=== PATIENT | male | born 1955 | race Caucasian/White ===

== ENCOUNTER 2022-03-17 09:19 | Outpatient (CLI) | payer MEDICARE, OTHER, SELFPAY ==
--- NOTE | 2022-03-17 09:30 | ECG_ITS ---
Measurements Intervals [place] Rate: 58 P: 8 MS: 176 QRS: 11 QRSD: 86 T: 45 QT: 405 QTc: 400 Interpretive Statements SINUS BRADYCARDIA WITH SINUS ARRHYTHMIA NONSPECIFIC ST & T-WAVE ABNORMALITY ABNORMAL ECG NO PREVIOUS ECG AVAILABLE FOR COMPARISON Electronically Signed On 03-17-2022 12:07:45 CDT by Judd Castillo M.D.
[2022-03-17 10:23] LABS: Anion Gap 10 mmol/L (8-16); Blood Urea Nitrogen 13 mg/dL (9-20); Calcium 8.9 mg/dL (8.4-10.2); Carbon Dioxide 21 mmol/L (22-30); Chloride 106 mmol/L (98-107); Estimated Glomerular Filt Rate > 60; Glucose 166 mg/dL (65-110); Potassium 4.5 mmol/L (3.4-5.0); Sodium 137 mmol/L (137-145)
== END 2022-03-17 09:20 | disposition home or self-care (01) ==
LOC: ANHSURGERY 09:35
PROVIDERS: Anesthesiology; Visit Provider Otolaryngology
DX: E11.9 Type 2 diabetes mellitus without complications (principal); Z01.818 Encounter for other preprocedural examination
CPT/HCPCS: 36415; 80048; 93005

== ENCOUNTER 2022-03-20 01:04 | Day surgery (SDC) | payer MEDICARE, OTHER, SELFPAY ==
[2022-03-16 11:03] VITALS: BMI 27.1
--- NOTE | 2022-03-16 11:28 | PC.NURSE ---
Report to the Outpatient Waiting Room, entrance under the green pavilion located off [facility], at time on date . OR Time: . - You and your visitor will be asked to self-screen and do not enter if you have any COVID symptoms. - Only one visitor and NO children visitors are allowed at this time. - The patient visitor is requested to leave or wait in car when not with patient due to restrictions. - A mask is required within the hospital. Patients may have clear liquids (water, carbonated beverages, clear teas, apple juice) until 3 hours prior to surgery with a maximum of 20 ounces. - No food from midnight until time of surgery - Infants may have breast milk until 4 hours before surgery, formula 6 hours prior to surgery. - Children will be allowed to drink immediately following surgery. If applicable, please bring a bottle or sippy cup to assist with drinking. Juice, water, soda, and popsicles are readily available. For infants on formula, please bring formula the day of surgery. Pacifiers are allowed. Take the following medications with a SIP of water the morning of surgery: _METOPROLOL, TOPIRAMATE_ Medications to discontinue per physician _ASPIRIN PER DR. BECKER'S INSTRUCTIONS__ Date to take last dose Please no make-up, nail divehi, hairspray, perfume, deodorant, or body powder the day of surgery. No jewelry (including any body piercings) or valuables the day of surgery, leave them at home. Please take a shower or bath the night before, or the morning of, surgery with an antibacterial soap. Wear comfortable, loose fitting clothing. - Jewelry must be removed prior to entering the operating room. Rings and piercings that are not removed may be cut off. - The hospital will not accept responsibility for valuables. - Please leave all valuables, including medications, at home the day of surgery. If you are going home after surgery, a licensed commercial trailer truck driver must drive you home. - NO public transportation without another adult. - We recommend that an adult stay with you for 24 hours following discharge. - We also recommend that you do not drive, make important decision, drink alcoholic beverages, or take any drugs that were not prescribed by your health care provider for at least 24 hours after your discharge time. Follow any additional instructions given to you from your surgeon. If you or anyone in your household have experienced Covid symptoms in the past week, please notify your surgeon or the nurse liaison at the phone number below for possible testing. Telephone instructions given to ___PT and asked if any additional questions and then verbalized understanding. Patient advised to call surgeon office or pre surgery nurse liaison [phone] if any additional questions.
--- NOTE | 2022-03-16 11:30 | PC.NURSE ---
PRE-OP INSTRUCTIONS, PLEASE READ CAREFULLY Report to the Outpatient Waiting Room, entrance under the green pavilion located off [facility], at time _1100_ on date _03/20/22_. OR Time: _1 PM_. - You and your visitor will be asked to self-screen and do not enter if you have any COVID symptoms. - Only one visitor and NO children visitors are allowed at this time. - The patient visitor is requested to leave or wait in car when not with patient due to restrictions. - A mask is required within the hospital. Patients may have clear liquids (water, carbonated beverages, clear teas, apple juice) until 3 hours prior to surgery (1000 AM) with a maximum of 20 ounces. - No food from midnight until time of surgery Take the following medications with a SIP of water the morning of surgery: _METOPROLOL, TOPIRAMATE_ Medications to discontinue per physician _ASPIRIN PER DR. BUCKLEY'S INSTRUCTIONS____ Medications to discontinue per ANESTHESIA - _VIT E AND KRILL OIL 3 DAYS PRIOR TO SURGERY, Date to take last dose 03/16/22_ Please no make-up, nail beninese, hairspray, perfume, deodorant, or body powder the day of surgery. No jewelry (including any body piercings) or valuables the day of surgery, leave them at home. Please take a shower or bath the night before, or the morning of, surgery with an antibacterial soap. Wear comfortable, loose fitting clothing. Children are encouraged to wear pajamas. - Jewelry must be removed prior to entering the operating room. Rings and piercings that are not removed may be cut off. - The hospital will not accept responsibility for valuables. - Please leave all valuables, including medications, at home the day of surgery. If you are going home after surgery, a licensed sales route driver helper must drive you home. - NO public transportation without another adult. - We recommend that an adult stay with you for 24 hours following discharge. - We also recommend that you do not drive, make important decision, drink alcoholic beverages, or take any drugs that were not prescribed by your health care provider for at least 24 hours after your discharge time. Follow any additional instructions given to you from your surgeon. If you or anyone in your household have experienced Covid symptoms in the past week, please notify your surgeon or the nurse liaison at the phone number below for possible testing. Telephone instructions given to ____PT and asked if any additional questions and then verbalized understanding. Patient advised to call surgeon office or pre surgery nurse liaison [phone] if any additional questions.
--- NOTE | 2022-03-18 16:15 | PM.IMHP ---
H&P: HPI History of Present Illness Date/Time: 03/18/22 16:15 Chief Complaint: Nasopharyngeal mass Narrative: planned surgical procedure Review of Systems Review of Systems: All systems reviewed & are unremarkable except as noted in HPI and below PMFSH Family History Family History Father Diabetes mellitus Hypertension Heart disease Social History Social History Smoking status: Never smoker Second hand tobacco smoke exposure: No Alcohol intake: current Alcohol use details: STATES MAYBE 30 BEERS IN A YEARS TIME Substance use: never Substance use type: does not use Spiritual care concerns: No Meds Home Medications and Allergies Home Medications Medication Instructions Recorded Confirmed Type aspirin 81 mg tablet,delayed 81 mg PO DAILY 02/24/22 03/16/22 History release (Adult Aspirin Regimen) atorvastatin 40 mg tablet 40 mg PO DAILY 02/24/22 03/16/22 History fenofibrate 160 mg tablet 160 mg PO DAILY 02/24/22 03/16/22 History glimepiride 4 mg tablet 4 mg PO QAM 02/24/22 03/16/22 History krill oil 350 mg-om-3 90 mg-dha 24 1 cap PO QAM 02/24/22 03/16/22 History mg-epa 50 mg-phospholipids capsule metformin 1,000 mg tablet 1,000 mg PO BID 02/24/22 03/16/22 History metoprolol succinate 50 mg 50 mg PO BID 02/24/22 03/16/22 History tablet,extended release 24 hr topiramate 25 mg tablet 25 mg PO BID 02/24/22 03/16/22 History vitamin E (dl, acetate) 180 mg 180 mg PO DAILY 02/24/22 03/16/22 History (400 unit) capsule Allergies Allergy/AdvReac Type Severity Reaction Status Date / Time penicillin G Allergy Intermediate raw and Verified 03/16/22 10:58 burning sensation Exam Narrative: normal ENT exam Assessment and Plan Assessment and plan (1) 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 Risks discussed including bleeding infection need for further procedures need for further treatment should this be something sinister of LF pharyngeal insufficiency CSF leak brain brain damage blindness change in vision patient voiced understanding and agreed. (2) Nasal crusting: Code(s): J34.89 - Other specified disorders of nose and nasal sinuses Status: Acute
--- NOTE | 2022-03-19 13:56 | WPDANESEPPF ---
Anes - Initial Pre Proc Eval Procedure: Operation Date: 03/20/22 13:00 Proposed Procedures p Nasal Endoscopic Nasopharyngeal Mass Biopsy - Christophe Barrera MD <Rodrigo Astorga, DO - Last Filed: 03/25/22 07:25> Date/Time: 03/19/22 13:56 <Rodrigo Astorga DO - Last Filed: 03/25/22 07:25> Surgeon: Christophe Barrera MD <Rodrigo Astorga DO - Last Filed: 03/25/22 07:25> Pre Op Diagnosis: Nasal Pharyngeal Mass <Rodrigo Astorga DO - Last Filed: 03/25/22 07:25> Patient Data Age: 66 Gender: M Height: 1.83 m Weight: 90.9 kg <Rodrigo Astorga DO - Last Filed: 03/25/22 07:25> Allergies Allergy/AdvReac Type Severity Reaction Status Date / Time penicillin G Allergy Intermediate raw and Verified 03/20/22 11:33 burning sensation <Rodrigo Astorga DO - Last Filed: 03/25/22 07:25> Home Medications Medication Instructions Recorded Confirmed Type aspirin 81 mg tablet,delayed 81 mg PO DAILY 02/24/22 03/20/22 History release (Adult Aspirin Regimen) atorvastatin 40 mg tablet 40 mg PO DAILY 02/24/22 03/20/22 History fenofibrate 160 mg tablet 160 mg PO DAILY 02/24/22 03/20/22 History glimepiride 4 mg tablet 4 mg PO QAM 02/24/22 03/20/22 History krill oil 350 mg-om-3 90 mg-dha 24 1 cap PO QAM 02/24/22 03/20/22 History mg-epa 50 mg-phospholipids capsule metformin 1,000 mg tablet 1,000 mg PO BID 02/24/22 03/20/22 History metoprolol succinate 50 mg 50 mg PO BID 02/24/22 03/20/22 History tablet,extended release 24 hr topiramate 25 mg tablet 25 mg PO BID 02/24/22 03/20/22 History vitamin E (dl, acetate) 180 mg 180 mg PO DAILY 02/24/22 03/20/22 History (400 unit) capsule oxycodone 5 mg tablet 5 mg PO Q12H PRN pain #10 tabs 03/20/22 Rx <Rodrigo Astorga DO - Last Filed: 03/25/22 07:25> Patient hx anesthesia problems: none <Elvis Jimenez MD - Last Filed: 03/20/22 12:05> Family hx anesthesia problems: none <Elvis Jimenez MD - Last Filed: 03/20/22 12:05> Results Review: All pre-operative results and documents have been reviewed as part of the pre-operative evaluation. <Rodrigo Astorga DO - Last Filed: 03/25/22 07:25> [facility] Past Medical History Medical History: Medical History (Updated 03/20/22 @ 13:47 by Christophe Barrera MD) Aortic stenosis Diabetes HTN (hypertension) Hyperlipidemia <Rodrigo Astorga DO - Last Filed: 03/25/22 07:25> Surgical History Surgical History: Surgical History History of aortic valve replacement with porcine valve History of laparoscopic cholecystectomy <Rodrigo Astorga DO - Last Filed: 03/25/22 07:25> Family History Family History: Family History Father Diabetes mellitus Hypertension Heart disease <Rodrigo Astorga DO - Last Filed: 03/25/22 07:25> Social History Social History: Social History Smoking status: Never smoker Second hand tobacco smoke exposure: No Alcohol intake: current Alcohol use details: STATES MAYBE 30 BEERS IN A YEARS TIME Substance use: never Substance use type: does not use Gender identity (if verbalized by the patient): Male Sexual Orientation (if Verbalized by the Patient): Straight or Heterosexual Spiritual care concerns: No <Rodrigo Astorga DO - Last Filed: 03/25/22 07:25> Anes - Eval Final PreProcedure Day of Procedure 03/19/22 13:56 <Rodrigo Astorga DO - Last Filed: 03/25/22 07:25> Patient weight: overweight <Rodrigo Astorga DO - Last Filed: 03/25/22 07:25> Heart: regular rate and rhythm <Rodrigo Astorga DO - Last Filed: 03/25/22 07:25> Lungs: clear to auscultation <Rodrigo Astorga DO - Last Filed: 03/25/22 07:25> Airway: Mallampati scale class II
[2022-03-20] VITALS (9 sets, daily range): BP systolic 135–160; BP diastolic 60–86; PULSE 53–79; RESP 15–22; TEMP 36–36.1; O2SAT 94–100
--- NOTE | 2022-03-20 07:10 | WPDHPUPDATE1 ---
History and Physical Update Update Date/Time: 03/20/22 07:10 History and Physical has been reviewed, including an updated exam of the patient. There are NO changes in the patient's condition. Risks, benefits, and alternatives have been discussed and questions answered. Patient agrees to proceed with procedure.
[2022-03-20] MEDS: ACETAMINOPHEN 500 MG TABLET 1000 MG PO (12:02)
[2022-03-20] MEDS: LACTATED RINGERS 1,000 ML 30 ML IV CONT ×2 (12:02→13:48)
[2022-03-20 12:08] LABS: Glucose Point of Care 103 mg/dl (65-105)
[2022-03-20] MEDS: ceFAZolin 2 GM/D5W 50 ML 2 GM/50 ML BAG IVPB (12:56)
[2022-03-20] MEDS: OXYMETAZOLINE HCL 0.05% NAS 15 ML BTL (*BKC) 1 SPRAY NASAL (13:12)
[2022-03-20 13:42] LABS: Glucose Point of Care 97 mg/dl (65-105)
--- NOTE | 2022-03-20 13:49 | W.PM.PROC2 ---
Procedure Note - Detailed Date of Procedure 03/20/22 Pre-op Diagnosis Nasal Pharyngeal Mass Post-op Diagnosis Same Procedure Performed Nasal endoscopy biopsy of nasopharyngeal mass Surgeon Christophe Barrera MD Anesthesia General Indications See above Findings Mild ulcerative area biopsy with very very thorough examination and close examination less sinister appearing more chronic infected appearance Description of Procedure Patient identified consent verified. Patient brought operating. Time-out performed. General anesthesia induced. Endotracheal tube secured airway taped left lower lip. Bed position patient prepped and draped Afrin-soaked pledgets placed allowed to sit for 5 minutes then removed 2nd time-out performed. 0 degree endoscope utilized. Nasopharyngeal crusting debrided small ulcerative air beneath left sinister appearing than it did in clinic. Biopsy taken. Bovie suction electrocautery at a setting of 12 utilized on 2 spots that were biopsied Afrin-soaked pledgets placed against the biopsy site. There allowed to sit for 5 minutes then removed. No further bleeding was noted. No complications. Care the patient given Anesthesiology total blood loss less than 5 cc. I performed all dictated portions. There were no complications. Estimated Blood Loss -5.0 Drains No Packing No Pathology Yes Complications No immediate complications Condition Stable Disposition PACU
[2022-03-20 14:11] LABS: Glucose Point of Care 97 mg/dl (65-105)
[2022-03-20] MEDS: ONDANSETRON INJ 4 MG/2 ML VIAL IV PUSH (14:40)
== END 2022-03-20 15:50 | disposition home or self-care (01) ==
PROVIDERS: Visit Provider Otolaryngology
PROC: (CPT 42999; principal; 2022-03-20 13:00)
DX: J34.89 Other specified disorders of nose and nasal sinuses (principal); I10 Essential (primary) hypertension; E11.9 Type 2 diabetes mellitus without complications; E78.5 Hyperlipidemia, unspecified; Z79.84 Long term (current) use of oral hypoglycemic drugs; Z79.82 Long term (current) use of aspirin; Z95.3 Presence of xenogenic heart valve
CPT/HCPCS: 42999; 82948; 88304; 88342; A9270; J0330; J0690; J1100; J1170; J2250; J2405; J2704; J3010; J7120

== ENCOUNTER 2023-06-11 11:00 | Outpatient (RCR) | payer MEDICARE, OTHER, SELFPAY | END 2023-06-11 13:00 | disposition home or self-care (01) | PROVIDERS: Visit Provider Surgery | DX: Z95.1 Presence of aortocoronary bypass graft (principal); Z95.5 Presence of coronary angioplasty implant and graft | CPT/HCPCS: 93798 ==

== ENCOUNTER 2024-02-01 13:54 | Outpatient (CLI) | payer MEDICARE, OTHER, SELFPAY ==
--- NOTE | ~2024-02-01 | NM_ITS ---
EXAMINATION: NM thyroid scan w uptake DATE: 02/02/2024 14:41 INDICATION: Other specified abnormal findings of blood chemistry COMPARISON: None. TECHNIQUE: 346 microcuries [id number] was administered orally in capsule form. Scintigraphic images of t he thyroid gland were obtained at 24 hours. Thyroid uptake was calculated by the technologist. FINDINGS: The thyroid uptake is 5.9% (normal 10-30%), with the right lobe measuring 3.4% uptake and the left 2. 6%. There is no focal area of decreased or increased activity to suggest hypofunctioning or hyperfunc tioning nodule. IMPRESSION: 1. Normal thyroid scintigraphy with diffusely decreased 24-hour iodine uptake with differential suba cute thyroiditis, Jennifer's thyroiditis, iodine overload or factitious hyperthyroidism. Reviewed, dictated and finalized at location B. IMPRESSION: 1. Normal thyroid scintigraphy with diffusely decreased 24-hour iodine uptake with differential subacute thyroiditis, Jennifer's thyroiditis, iodine overloa d or factitious hyperthyroidism.
== END 2024-02-01 13:55 | disposition home or self-care (01) ==
PROVIDERS: Visit Provider Internal Medicine Endocrinology, Diabetes & Metabolism
DX: R79.89 Other specified abnormal findings of blood chemistry (principal); E05.90 Thyrotoxicosis, unspecified without thyrotoxic crisis or storm
CPT/HCPCS: 78014; A9516